=== PATIENT | female | born 1965 | race Caucasian/White ===

== ENCOUNTER → 2020-09-26 | Outpatient (CLI) | payer OTHER ==
[~2020-09-26] MED LIST: ASPIRIN325 PO; FLEXERIL PO; LAMISIL250 MG PO; LEVOTHYROXINE0.2 M1 PO; MOBIC15 MG PO; MULTIVITAMINS1 EAC7 PO; RYTHMOL 150MG150 M1 OR; SYNTHROID PO
== END ==
LOC: M.CT 09:06
PROVIDERS: ATTEND Internal Medicine Cardiovascular Disease
DX: Z13.6 Encounter for screening for cardiovascular disorders (principal)

== ENCOUNTER → 2021-05-24 | Outpatient (CLI) | payer BC ==
--- NOTE | 2021-06-12 18:38 | SLEEP ---
[place] [address] SLEEP STUDY REPORT Name: JOSE CERVANTES Room: [facility] Meg.#: [id number] Admission: 05/24/21 Attend Phys: Dalila Nava RN Discharge: Date of : 69 Report #: [id number] THIS REPORT FOR: cc: Yamile Person MD, Jayne MD Pervez, Adeel MD ~ DATE OF STUDY: 05/24/2021 HOME SLEEP STUDY INTERPRETATION: Total duration of the study is 509 minutes. During this time duration, we recorded multiple sleep-related respiratory events. These included 58 obstructive apneas as well as 1 central apnea and 1 mixed apnea, in addition to 39 hypopneas. Overall, apnea-hypopnea index is 11.7. Body position data indicates the patient is lying on the right side throughout the sleep study. There is severe nocturnal hypoxemia recorded. The patient overall spent 362 minutes below an O2 saturation of 90%. Mean heart rate was 74. IMPRESSION: 1. There is mild obstructive sleep apnea with an apnea-hypopnea index of 11.7. 2. There is severe nocturnal hypoxemia with O2 saturation being below 90% for 360 minutes during the sleep study. This is out of proportion to the severity of obstructive sleep apnea recorded above. 3. The patient is lying on the right side throughout the sleep study. RECOMMENDATIONS: Considering severe nocturnal hypoxemia, I recommend that rather than the use of a CPAP auto titrated device, we proceed with an in-lab sleep study. During the in-lab sleep study, I recommend initially starting with a diagnostic portion, so that we can verify O2 saturations. Would suggest subsequently proceeding with a split night if the patient meets criteria. The patient has nocturnal hypoxemia, which is out of proportion to his obstructive sleep apnea. Recommend evaluation for other causes of hypoxemia if not already known. This entire sleep study was reviewed by a board certified sleep physician. <ELECTRONICALLY SIGNED> By: Jose Roberto Dotson MD 06/12/21 [id number] Dotson MD /nt
== END ==
LOC: M.PUL 08:48
PROVIDERS: ATTEND Nurse Practitioner
DX: G47.33 Obstructive sleep apnea (adult) (pediatric) (principal); R09.02 Hypoxemia; R06.83 Snoring; R40.0 Somnolence